=== PATIENT | female | born 1975 | race Two or more races ===

== ENCOUNTER 2023-12-19 14:08 | Outpatient (CLI) | payer OTHER | END 2023-12-19 14:32 | disposition home or self-care (01) | LOC: MAMO-SONO 14:08 | PROVIDERS: ATTEND Internal Medicine Rheumatology | DX: M15.8 Other polyosteoarthritis (principal); N60.11 Diffuse cystic mastopathy of right breast; N60.12 Diffuse cystic mastopathy of left breast; Z12.31 Encounter for screening mammogram for malignant neoplasm of breast ==

== ENCOUNTER 2024-09-11 23:50 | Emergency (ER) | payer OTHER | END 2024-09-12 | disposition left against medical advice (07) | LOC: ER 23:51 | DX: Z53.21 Procedure and treatment not carried out due to patient leaving prior to being seen by health care provider (principal) ==